=== PATIENT | female | born 1990 | race Caucasian/White ===

== ENCOUNTER 2020-05-05 13:56 | Emergency (ER) | payer OTHER ==
[~2020-05-05] VITALS: Ht 152.4 cm; Wt 56.0 kg
[2020-05-05] MEDS ORDERED: SODIUM CHLORIDE 0.9% 1,000 ML IV ONE (14:29)
[2020-05-05] MEDS ORDERED: IBUPROFEN 600MG TABLET PO ONE (14:45)
[2020-05-05 14:50] VITALS: BP 127/83
== END 2020-05-05 14:54 | disposition home or self-care (01) ==
LOC: ER 13:56
DX: J02.8 Acute pharyngitis due to other specified organisms (principal); Z98.890 Other specified postprocedural states
CPT/HCPCS: 99282; J7030